=== PATIENT | male | born 1965 | race Caucasian/White ===

== ENCOUNTER 2019-05-16 05:28 | Emergency (ER) | payer BC ==
[2019-05-16 05:49] VITALS: BP 213/125
--- NOTE | 2019-05-16 06:47 | EDM.PDOC ---
ED HPI GENERAL MEDICAL PROBLEM - General Chief Complaint: General Stated Complaint: SWELLING FROM TOOTH Time Seen by Provider: 05/16/19 06:33 - History of Present Illness INITIAL COMMENTS - FREE TEXT/NARRATIVE: HISTORY AND PHYSICAL: History of present illness: Patient 53-year-old white male with chief complaint of dental pain has been no fever chills nausea vomiting or other concern. Review of systems: As per history of present illness and below otherwise all systems reviewed and negative. Past medical history: As per history of present illness and as reviewed below otherwise noncontributory. Surgical history: As per history of present illness and as reviewed below otherwise noncontributory. Social history: No reported history of drug or alcohol abuse. Family history: As per history of present illness and as reviewed below otherwise noncontributory. Physical exam: HEENT: Atraumatic, normocephalic, pupils reactive, negative for conjunctival pallor or scleral icterus, mucous membranes moist, throat clear, neck supple, nontender, trachea midline. Generally poor dentition with multiple dental caries Lungs: Clear to auscultation, breath sounds equal bilaterally, chest nontender. Heart: S1S2, regular, negative for clicks, rubs, or JVD. Abdomen: Soft, nondistended, nontender. Negative for masses or hepatosplenomegaly. Negative for costovertebral tenderness. Pelvis: Stable nontender. Genitourinary: Deferred. Rectal: Deferred. Extremities: Atraumatic, negative for cords or calf pain. Neurovascular unremarkable. Neuro: Awake, alert, oriented. Cranial nerves II through XII unremarkable. Cerebellum unremarkable. Motor and sensory unremarkable throughout. Exam nonfocal. Diagnostics: None Therapeutics: Dental balls Impression: #1 dentalgia #2 dental caries #3 rule out dental abscess Definitive disposition and diagnosis as appropriate pending reevaluation and review of above. dental Pain Score (Numeric/FACES): 10 - Related Data Allergies Allergy/AdvReac Type Severity Reaction Status Date / Time No Known Allergies Allergy Verified 05/16/19 05:42 Home Meds: Home Meds . [No Known Home Meds] 08/31/15 [History] Past Medical History Cardiovascular History: Reports: Hypertension Respiratory History: Reports: Asthma - Infectious Disease History Infectious Disease History: Reports: Chicken Pox - Past Surgical History Cardiovascular Surgical History: Reports: None Respiratory Surgical History: Reports: None Social & Family History - Family History Family Medical History: Noncontributory - Tobacco Use Smoking Status *Q: Current Every Day Smoker Years of Tobacco use: 30 Packs/Tins Daily: 1 - Caffeine Use Caffeine Use: Reports: Soda - Recreational Drug Use Recreational Drug Use: No ED ROS GENERAL - Review of Systems Review Of Systems: ROS reveals no pertinent complaints other than HPI. ED EXAM, GENERAL - Physical Exam Exam: See Below (See dictation) Course - Vital Signs Text/Narrative:: Patient made aware of his elevated blood pressure he states he has diagnosis of hypertension but has been medically noncompliant he states medication makes him feel worse he understands the high risk For stroke heart attack with untreated hypertension in the nature of his elevated pressure at this time he declines any diagnostics or treatment that you follow-up with his private medical doctor he does agree to treatment for his dental abscess Last Recorded V/S: Last Vital Signs Temp 36.2 C 05/16/19 05:31 Pulse 82 05/16/19 05:31 Resp 17 05/16/19 05:31 BP 213/125 H 05/16/19 05:31 Pulse Ox 98 05/16/19 05:31 Departure - Departure Time of Disposition: 06:43 Disposition: Home, Self-Care 01 Condition: Good Clinical Impression: Dentalgia, Dental abscess, Hypertension, Medical non-compliance - Discharge Information Referrals: PCP,None [Primary Care Provider] - Additional Instructions: The following information is given to patients seen in the emergency department who are being discharged to home. This information is to outline your options for follow-up care. We provide all patients seen in our emergency department with a follow-up referral. The need for follow-up, as well as the timing and circumstances, are variable depending upon the specifics of your emergency department visit. If you don't have a primary care physician on staff, we will provide you with a referral. We always advise you to contact your personal physician following an emergency department visit to inform them of the circumstance of the visit and for follow-up with them and/or the need for any referrals to a consulting specialist. The emergency department will also refer you to a specialist when appropriate. This referral assures that you have the opportunity for followup care with a specialist. All of these measure are taken in an effort to provide you with optimal care, which includes your followup. Under all circumstances we always encourage you to contact your private physician who remains a resource for coordinating your care. When calling for followup care, please make the office aware that this follow-up is from your recent emergency room visit. If for any reason you are refused follow-up, please contact the [facility] emergency department at and asked to speak to the emergency department charge nurse. [facility] [address] [place] [id number] Augmentin as prescribed dental balls as directed follow-up dentist as discussed follow-up primary care is discussed and return as needed as discussed
[2019-05-16] MEDS ORDERED: Ketorolac 60 MG/2 ML SDV IM ONE (06:50)
[2019-05-16] MEDS ORDERED: Acetaminophen/HYDROcodone 325-10 MG Tab PO ONE (06:50)
[2019-05-16] MEDS ORDERED: Lidocaine 2% Viscous Solution 15 ML Cup PO ONE (06:51)
[2019-05-16] MEDS ORDERED: Benzocaine 20% Topical Spray UD MUCMEM ONE (06:52)
== END 2019-05-16 07:21 | disposition home or self-care (01) ==
LOC: MW.ED 05:28
DX: K04.7 Periapical abscess without sinus (principal); K02.9 Dental caries, unspecified; I10 Essential (primary) hypertension; F17.210 Nicotine dependence, cigarettes, uncomplicated; Z91.14 Patient's other noncompliance with medication regimen
CPT/HCPCS: 96372; 99282; A9270; J1885

== ENCOUNTER 2019-09-14 01:33 | Emergency (ER) | payer BC ==
[2019-09-14] MEDS ORDERED: Albuterol/Ipratropium 3.0-0.5 MG/3 ML Neb Soln NEB ONE ×2 (01:40→02:31)
[2019-09-14] MEDS ORDERED: Sodium Chloride 0.9% 1,000 ML IV ONE (01:40)
[2019-09-14] MEDS ORDERED: Sodium Chloride 0.9% 2.5 ML Syringe FLUSH PRN (01:40)
[2019-09-14] MEDS ORDERED: methylPREDNISolone Sodium Succinate 125 MG/2 ML SDV IVPUSH ONE (01:40)
[2019-09-14] MEDS ORDERED: Sodium Chloride 0.9% 10 ML Syringe FLUSH PRN (01:40)
--- NOTE | 2019-09-14 01:46 | EDM.PDOC ---
ED HPI GENERAL MEDICAL PROBLEM - General Chief Complaint: Respiratory Problem Stated Complaint: SHORTNESS OF BREATH Time Seen by Provider: 09/14/19 01:36 - History of Present Illness INITIAL COMMENTS - FREE TEXT/NARRATIVE: HISTORY AND PHYSICAL: History of present illness: the patient is a 53-year-old male who follows in our family practice clinic and has a history of asthma as well as long-standing tobacco use of at least a pack a day and hypertension, for which he is prescribed medications that he is not taking for as long as up to a year, who presents with several weeks of cough and shortness of breath and using his inhaler more often but worsening over the last 5 days. He only complains of chest pain because of his breathing and is coughing up some phlegm intermittently and he has been using his inhaler and says it is almost gone. He cannot recall the last time he got steroids for his asthma and has never been admitted for it. he has no focal left-sided chest pain and describes it as an ill-defined discomfort to the entire chest wall area.He has no abdominal pain nausea vomiting or diarrhea and he did not get his influenza shot. He has no sore throat and no fevers. He came in this evening because of the worsening of the symptoms over the last 5 days.the patient does not have a nebulizer machine at home After some thinking the patient says that he believes he was taking lisinopril but has not taken it in over a year. Review of systems: As per history of present illness and below otherwise all systems reviewed and negative. Past medical history: As per history of present illness and as reviewed below otherwise noncontributory. Surgical history: As per history of present illness and as reviewed below otherwise noncontributory. Social history: No reported history of drug or alcohol abuse. Family history: As per history of present illness and as reviewed below otherwise noncontributory. Physical exam: general: Well-developed well-nourished man who looks breathless on evaluation but no abdominal worker breathing and his O2 sat on room air was 94%. Vital signs otherwise are noted by me HEENT: Atraumatic, normocephalic, pupils reactive, negative for conjunctival pallor or scleral icterus, mucous membranes moist, throat clear, neck supple, nontender, trachea midline. Lungs: diminished breath sounds bilateral bases to about a third up and there is expiratory wheezing appreciated but no stridor breath sounds equal bilaterally, chest nontender. Heart: S1S2, regularhythm and tachycardic rate on my evaluation, no overt murmurs, negative for clicks, rubs, or JVD. Abdomen: Soft, nondistended, nontender. Negative for masses or hepatosplenomegaly. Negative for costovertebral tenderness. Pelvis: deferred Genitourinary: Deferred. Rectal: Deferred. Extremities: Atraumatic, negative for cords or calf pain. Neurovascular unremarkable.no pedal edema or leg asymmetry Neuro: Awake, alert, oriented. Cranial nerves II through XII unremarkable. Cerebellum unremarkable. Motor and sensory unremarkable throughout. Exam nonfocal. skin: No diaphoresis normal turgor no overt rashes or lesions Diagnostics: EKG x 2, chest x-ray influenza CBC CMP Therapeutics: IV O2 monitor IV fluids Solu-Medrol duo neb, nitro paste ASA,potassium chloride, Rocephin Ativan lovenox patient's blood pressure on my reevaluation is 179/95and his heart rate is in the 90s.. His O2 sat is only 92% on room air and he still very tight in his air exchange with better air exchange at the right base than previously. He says he is not having any chest pain or discomfort but still feels like he doesn't get as much air as he should. I will place him on 2 L nasal cannula reevaluate. We are going to give him another DuoNeb. 0300: I discussed with the patient and close friend at bedside all testing results and my concern about his positive troponin and his EKG changes and need for cardiology involvement. As his symptoms have been ongoing for the last 5 days it is unclear if the troponin is rising or falling with respect to his current symptoms and he clearly has an asthma exacerbation. As I'm talking to him he is becoming much more anxious and his heart rate is rising as well as his blood pressure going up and he does state that he is having anxiety. I will give him a dose of Ativan and he is also aware of the other medications I have ordered him why he is receiving them. He is aware that he needs to go to [facility] for these test results and is agreeable. He says he is not having chest pain at this time nor has he had chest pain over the last few days. We will work on transfer 0305: Case was discussed with Dr. Deutsch at [facility] in [place]. I did ask him if he would like Lovenox or heparin and he would like me to give a dose of Lovenox. He is aware that the patient did stabilize his blood pressure and heart rate but now he is very anxious and those numbers have increased. I will give him Lopressor and readjust his blood pressure as needed. He is aware that the patient is not having chest pain and will go by ground. The patient also has expressed to me that he would prefer not to fly illness it is absolute necessary at this point he is not having chest pain and I feel ground is stable. I will continue to monitor the heart rate and blood pressure until the patient is transferred Impression: NSTEMI ;poorly controlled hypertension with medication noncompliance acute asthma exacerbation;leukocytosis Definitive disposition and diagnosis as appropriate pending reevaluation and review of above.298 no pain Pain Score (Numeric/FACES): 0 - Related Data Allergies Allergy/AdvReac Type Severity Reaction Status Date / Time No Known Allergies Allergy Verified 09/14/19 01:36 Home Meds: Home Meds . [No Known Home Meds] 08/31/15 [History] Past Medical History Cardiovascular History: Reports: Hypertension Respiratory History: Reports: Asthma - Infectious Disease History Infectious Disease History: Reports: Chicken Pox - Past Surgical History Cardiovascular Surgical History: Reports: None Respiratory Surgical History: Reports: None Social & Family History - Family History Family Medical History: Noncontributory - Caffeine Use Caffeine Use: Reports: Soda ED ROS GENERAL - Review of Systems Review Of Systems: Comprehensive ROS is negative, except as noted in HPI. ED EXAM, GENERAL - Physical Exam Exam: See Below (see dictation) Course - Vital Signs Last Recorded V/S: Last Vital Signs Temp 35.7 C 09/14/19 01:36 Pulse 108 H 09/14/19 03:07 Resp 19 09/14/19 03:00 BP 200/106 H 09/14/19 03:07 Pulse Ox 95 09/14/19 03:00 - Orders/Labs/Meds Orders: Active Orders 24 hr Category Date Time Status Cardiac Monitoring [RC] . DIRECTED Care 09/14/19 01:35 Active EKG Documentation Completion [RC] STAT Care 09/14/19 01:35 Active EKG Documentation Completion [RC] STAT Care 09/14/19 02:33 Active Oxygen Therapy, ED [RC] ASDIRECTED Care 09/14/19 01:35 Active Pulse Oximetry [RC] ASDIRECTED Care 09/14/19 01:36 Active RT Aerosol Therapy [RC] ASDIRECTED Care 09/14/19 01:40 Active RT Aerosol Therapy [RC] ASDIRECTED Care 09/14/19 02:31 Active Sodium Chloride 0.9% [Saline Flush] Med 09/14/19 01:40 Active 10 ml FLUSH ASDIRECTED PRN Sodium Chloride 0.9% [Saline Flush] Med 09/14/19 01:40 Active 2.5 ml FLUSH ASDIRECTED PRN cefTRIAXone [Rocephin in Dextrose,Iso-Osm 1 GM/50 ML] 1 Med 09/14/19 03:04 Active gm Premix Bag 1 bag IV ONETIME Saline Lock Insert [OM.PC] Stat Oth 09/14/19 01:40 Ordered Medication Orders Ceftriaxone Sodium/Dextrose 1 (gm/ Premix) 50 mls @ 100 mls/hr IV ONETIME ONE Stop: 09/14/19 03:33 Sodium Chloride (Saline Flush) 10 ml FLUSH ASDIRECTED PRN PRN Reason: Keep Vein Open Sodium Chloride (Saline Flush) 2.5 ml FLUSH ASDIRECTED PRN PRN Reason: Keep Vein Open Labs: Laboratory Tests 09/14/19 09/14/19 09/14/19 Range/Units 01:50 01:50 01:50 WBC 14.87 H (4.0-11.0) K/uL RBC 3.99 L (4.50-5.90) M/uL Hgb 12.7 L (13.0-17.0) g/dL Hct 37.5 L (38.0-50.0) % MCV 94.0 (80.0-98.0) fL MCH 31.8 (27.0-32.0) pg MCHC 33.9 (31.0-37.0) g/dL RDW Std Deviation 46.2 (28.0-62.0) fl RDW Coeff of Evangelina 13 (11.0-15.0) % Plt Count 258 (150-400) K/uL MPV 11.00 (7.40-12.00) fL Neut % (Auto) 70.9 (48.0-80.0) % Lymph % (Auto) 20.0 (16.0-40.0) % [place] % (Auto) 8.3 (0.0-15.0) % Eos % (Auto) 0.5 (0.0-7.0) % Baso % (Auto) 0.3 (0.0-1.5) % Neut # (Auto) 10.5 H (1.4-5.7) K/uL Lymph # (Auto) 3.0 H (0.6-2.4) K/uL [place] # (Auto) 1.2 H (0.0-0.8) K/uL Eos # (Auto) 0.1 (0.0-0.7) K/uL Baso # (Auto) 0.0 (0.0-0.1) K/uL Nucleated RBC % 0.0 /100WBC Nucleated RBCs # 0 K/uL Sodium 141 (136-148) mmol/L Potassium 3.2 L (3.5-5.1) mmol/L Chloride 104 (98-107) mmol/L Carbon Dioxide 26.8 (21.0-32.0) mmol/L BUN 5 L (7.0-18.0) mg/dL Creatinine 1.0 (0.8-1.3) mg/dL Est Cr Clr Drug Dosing 77.09 mL/min Estimated GFR (MDRD) > 60.0 ml/min Glucose 105 (74-106) mg/dL Calcium 9.0 (8.5-10.1) mg/dL Total Bilirubin 1.1 H (0.2-1.0) mg/dL AST 13 L (15-37) IU/L ALT 14 (14-63) IU/L Alkaline Phosphatase 78 (46-116) U/L Troponin I 0.173 H* (0.000-0.056) ng/mL Total Protein 8.3 H (6.4-8.2) g/dL Albumin 3.9 (3.4-5.0) g/dL Globulin 4.4 H (2.6-4.0) g/dL Albumin/Globulin Ratio 0.9 (0.9-1.6) Meds: Medications Generic Name Dose Route Start Last Admin Trade Name Freq PRN Reason Stop Dose Admin Ceftriaxone Sodium/Dextrose 1 50 mls @ 100 mls/hr 09/14/19 03:04 gm/ Premix IV 09/14/19 03:33 ONETIME ONE Sodium Chloride 10 ml 09/14/19 01:40 Saline Flush FLUSH ASDIRECTED PRN Keep Vein Open Sodium Chloride 2.5 ml 09/14/19 01:40 Saline Flush FLUSH ASDIRECTED PRN Keep Vein Open Discontinued Medications Generic Name Dose Route Start Last Admin Trade Name Arabella PRN Reason Stop Dose Admin Albuterol/Ipratropium 3 ml 09/14/19 01:40 09/14/19 01:54 Duoneb 3.0-0.5 Mg/3 Ml NEB 09/14/19 01:41 3 ml ONETIME ONE Administration Albuterol/Ipratropium 3 ml 09/14/19 02:31 09/14/19 02:35 Duoneb 3.0-0.5 Mg/3 Ml NEB 09/14/19 02:32 3 ml ONETIME ONE Administration Aspirin 324 mg 09/14/19 02:39 09/14/19 02:48 Aspirin PO 09/14/19 02:40 324 mg ONETIME ONE Administration Enoxaparin Sodium 80 mg 09/14/19 03:09 Lovenox SUBCUT 09/14/19 03:10 ONETIME ONE Sodium Chloride 1,000 mls @ 999 mls/hr 09/14/19 01:40 09/14/19 01:50 Normal Saline IV 09/14/19 02:40 999 mls/hr STAT ONE Administration Lorazepam 1 mg 09/14/19 03:04 Ativan IVPUSH 09/14/19 03:05 ONETIME ONE Methylprednisolone Sodium Succinate 125 mg 09/14/19 01:40 09/14/19 01:51 Solu-Medrol IVPUSH 09/14/19 01:41 125 mg ONETIME ONE Administration Metoprolol Tartrate 5 mg 09/14/19 02:55 09/14/19 03:07 Lopressor IVPUSH 09/14/19 02:56 5 mg ONETIME ONE Administration Nitroglycerin 1 gm 09/14/19 01:50 09/14/19 01:56 Nitro-Bid 2% TOP 09/14/19 01:51 1 gm ONETIME ONE Administration Potassium Chloride 40 meq 09/14/19 02:40 09/14/19 02:48 Klor-Con M20 PO 09/14/19 02:41 40 meq ONETIME ONE Administration Departure - Departure Time of Disposition: 03:15 Disposition: DC/Tfer to Acute Hospital 02 Condition: Good Clinical Impression: NSTEMI (non-ST elevated myocardial infarction), Acute asthma Leukocytosis Qualifiers: Leukocytosis type: unspecified Qualified Code(s): D72.829 - Elevated white blood cell count, unspecified - Discharge Information Referrals: PCP,None [Primary Care Provider] - Forms: ED Department Discharge - My Orders Last 24 Hours: My Active Orders 09/14/19 01:35 Cardiac Monitoring [RC] . DIRECTED EKG Documentation Completion [RC] STAT Oxygen Therapy, ED [RC] ASDIRECTED 09/14/19 01:36 Pulse Oximetry [RC] ASDIRECTED 09/14/19 01:40 RT Aerosol Therapy [RC] ASDIRECTED Sodium Chloride 0.9% [Saline Flush] 10 ml FLUSH ASDIRECTED PRN Sodium Chloride 0.9% [Saline Flush] 2.5 ml FLUSH ASDIRECTED PRN Saline Lock Insert [OM.PC] Stat 09/14/19 02:31 RT Aerosol Therapy [RC] ASDIRECTED 09/14/19 02:33 EKG Documentation Completion [RC] STAT 09/14/19 03:04 cefTRIAXone [Rocephin in Dextrose,Iso-Osm 1 GM/50 ML] 1 gm Premix Bag 1 bag IV ONETIME - Assessment/Plan Last 24 Hours: My Active Orders 09/14/19 01:35 Cardiac Monitoring [RC] . DIRECTED EKG Documentation Completion [RC] STAT Oxygen Therapy, ED [RC] ASDIRECTED 09/14/19 01:36 Pulse Oximetry [RC] ASDIRECTED 09/14/19 01:40 RT Aerosol Therapy [RC] ASDIRECTED Sodium Chloride 0.9% [Saline Flush] 10 ml FLUSH ASDIRECTED PRN Sodium Chloride 0.9% [Saline Flush] 2.5 ml FLUSH ASDIRECTED PRN Saline Lock Insert [OM.PC] Stat 09/14/19 02:31 RT Aerosol Therapy [RC] ASDIRECTED 09/14/19 02:33 EKG Documentation Completion [RC] STAT 09/14/19 03:04 cefTRIAXone [Rocephin in Dextrose,Iso-Osm 1 GM/50 ML] 1 gm Premix Bag 1 bag IV ONETIME
[2019-09-14] MEDS ORDERED: Nitroglycerin 2% Oint 1 GM UD Packet TOP ONE (01:50)
[2019-09-14 02:21] LABS: BLOOD UREA NITROGEN,BUN 5 mg/dL (7.0-18.0); CARBON DIOXIDE,CO2 26.8 mmol/L (21.0-32.0); CHLORIDE,CL 104 mmol/L (98-107); GLUCOSE RANDOM 105 mg/dL (74-106); POTASSIUM,K 3.2 mmol/L (3.5-5.1); SODIUM,NA 141 mmol/L (136-148)
[2019-09-14] MEDS ORDERED: Aspirin 81 MG Tab.Chew PO ONE (02:39)
[2019-09-14] MEDS ORDERED: Potassium Chloride 20 MEQ Tab.ER PO ONE (02:40)
--- NOTE | 2019-09-14 02:50 | CR ---
INDICATION: Shortness of breath COMPARISON: 08/31/2015 FINDINGS: PA and lateral views of the chest were obtained. The lungs remain clear. No focal or diffuse infiltrates are present. The heart remains normal in size. The mediastinum is normal in appearance. The osseous structures are normal in appearance for the patient`s age. IMPRESSION: Normal chest two views. Dictated by Sid Proctor MD @ Sep 14 2019 2:48AM Signed by Dr. Sid Proctor @ Sep 14 2019 2:49AM
[2019-09-14] MEDS ORDERED: Metoprolol Tartrate 5 MG/5 ML SDV IVPUSH ONE (02:55)
[2019-09-14] MEDS ORDERED: cefTRIAXone 1 GM in Premix Bag 1 BAG IV ONE (03:04)
[2019-09-14] MEDS ORDERED: LORazepam 2 MG/ML SDV IVPUSH ONE (03:04)
[2019-09-14] MEDS ORDERED: Enoxaparin 100 MG/1 ML Syringe SUBCUT ONE (03:09)
[2019-09-14 10:59] VITALS: BP 149/89; PULSE 78
== END 2019-09-14 09:25 ==
LOC: MW.ED 01:33
DX: I21.4 Non-ST elevation (NSTEMI) myocardial infarction (principal); J45.901 Unspecified asthma with (acute) exacerbation; I10 Essential (primary) hypertension; D72.829 Elevated white blood cell count, unspecified; F17.210 Nicotine dependence, cigarettes, uncomplicated; Z91.14 Patient's other noncompliance with medication regimen
CPT/HCPCS: 36415; 71046; 80053; 84484; 85025; 87804; 93005; 94640; 96361; 96365; 96372; 96375; 99285; A9270; J0696; J1650; J2060; J2930; J3490; J7040; J7620-GY

== ENCOUNTER 2022-09-25 02:55 | Emergency (ER) | payer SELFPAY ==
[2022-09-25] MEDS ORDERED: Sodium Chloride 0.9% 2.5 ML Syringe FLUSH PRN (03:00)
[2022-09-25] MEDS ORDERED: Sodium Chloride 0.9% 10 ML Syringe FLUSH PRN (03:00)
[2022-09-25] MEDS ORDERED: methylPREDNISolone Sodium Succinate 125 MG/2 ML SDV IVPUSH ONE (03:01)
[2022-09-25] MEDS ORDERED: Albuterol/Ipratropium 3.0-0.5 MG/3 ML Neb Soln NEB ONE (03:01)
[2022-09-25] MEDS ORDERED: Aspirin 81 MG Tab.Chew PO ONE (03:06)
[2022-09-25 03:48] LABS: BLOOD UREA NITROGEN,BUN 11 mg/dL (7.0-18.0); CARBON DIOXIDE,CO2 21.2 mmol/L (21.0-32.0); CHLORIDE,CL 98 mmol/L (98-107); GLUCOSE RANDOM 139 mg/dL (74-106); LIPASE 78 U/L (73-393); POTASSIUM,K 3.3 mmol/L (3.5-5.1); SODIUM,NA 140 mmol/L (136-148)
[2022-09-25] MEDS ORDERED: Sodium Chloride 0.9% 1,000 ML IV ONE ×2 (03:49→03:50)
[2022-09-25] MEDS ORDERED: Piperacillin/Tazobactam 4.5 GM in Sodium Chloride 0.9% 100 ML IV ONE (03:51)
[2022-09-25 03:53] LABS: ESTIMATED GFR 50 mL/min (>60)
[2022-09-25] MEDS ORDERED: Heparin Sodium 5,000 Units/ML Vial IVPUSH ONE (03:55)
[2022-09-25] MEDS ORDERED: Heparin Sodium/0.45% NaCl 500 ML ONE (03:58)
[2022-09-25] MEDS ORDERED: Sodium Chloride 0.9% 500 ML IV SCH (04:00)
[2022-09-25] MEDS ORDERED: Heparin Sodium/0.45% NaCl 500 ML IV SCH (04:00)
[2022-09-25] MEDS ORDERED: Nitroglycerin 0.4 MG Tab.SL SL ONE (04:07)
[2022-09-25] MEDS ORDERED: Morphine 4 MG/ML Syringe IVPUSH ONE ×2 (04:30→05:11)
[2022-09-25 04:46] VITALS: PULSE 108
[2022-09-25 05:21] VITALS: BP 110/76
== END 2022-09-25 06:30 ==
LOC: MW.ED 02:55
DX: I21.4 Non-ST elevation (NSTEMI) myocardial infarction (principal); I10 Essential (primary) hypertension; J45.909 Unspecified asthma, uncomplicated; Z20.822 Contact with and (suspected) exposure to COVID-19
CPT/HCPCS: 36415; 71045; 74176; 80053; 80307; 82803; 83605; 83690; 83735; 83880; 84484; 85025; 85610; 85730; 86140; 87040; 87635; 93005; 96365; 96366; 96368; 96375; 96376; 99285; A9270; J1644; J2270; J2543; J2930; J7030; J7620-GY; U0002